=== PATIENT | female | born 1990 | race Caucasian/White ===

== ENCOUNTER 2023-02-05 11:46 | Emergency (ER) | payer MEDICAID, SELFPAY ==
[2023-02-05] VITALS (8 sets, daily range): BP systolic 133–151; BP diastolic 55–88; PULSE 74–93; RESP 16–20; TEMP 36.6–36.9; O2SAT 94–97; BMI 48.6
--- NOTE | 2023-02-05 11:58 | ECG_ITS ---
[facility] Test Date: 2023-02-05 Pat Name: Peggy Sen Department: Room: Gender: Female [employer]ishing [employer] Operator: : 1990 Requested By: Doug Levin Order Number: [id number] Alycia MD: Dario Mckinley M.D. Measurements Intervals [place] Rate: 86 P: 43 IA: 158 QRS: 65 QRSD: 75 T: 50 QT: 358 QTc: 429 Interpretive Statements SINUS RHYTHM No previous ECG available for comparison Electronically Signed On 02-06-2023 6:53:55 CDT by Dario Mckinley M.D. [email or web address]
--- NOTE | 2023-02-05 16:57 | PC.PHAR ---
pt states she takes no rx medications-pt states she took a one time dose of tylenol cold and flu yesterday 02/04/23
--- NOTE | 2023-02-05 17:00 | XRR_ITS ---
PROCEDURE INFORMATION: Exam: XR Right Foot Exam date and time: 02/05/2023 5:04 PM Age: 33 years old Clinical indication: Pain; Foot; Right; Additional info: Pain no trauma TECHNIQUE: Imaging protocol: Radiologic exam of the right foot. Views: 3 or more views. COMPARISON: No relevant prior studies available. FINDINGS: Bones/joints: Negative for acute bone abnormality. Soft tissues: Normal. XR/XR foot RT min 3V* [id number] IMPRESSION: No acute findings.
--- NOTE | 2023-02-05 17:00 | XRR_ITS ---
PROCEDURE INFORMATION: Exam: XR Chest Exam date and time: 02/05/2023 5:04 PM Age: 33 years old Clinical indication: Pain; Chest pressure; Additional info: Right chest pain TECHNIQUE: Imaging protocol: Radiologic exam of the chest. Views: 1 view. COMPARISON: No relevant prior studies available. FINDINGS: Lungs: Unremarkable. No consolidation. Pleural spaces: Unremarkable. No pleural effusion. No pneumothorax. Heart/Mediastinum: Unremarkable. No cardiomegaly. Bones/joints: Unremarkable. XR/XR chest 1V portable [id number] IMPRESSION: No acute findings.
--- NOTE | 2023-02-05 17:03 | ED_ITS ---
Documented by User: Doug Levin DO 02/05/23 17:07 HPI - Chest Pain General: Chief Complaint: Chest Pain Stated Complaint: CP Time Seen by Provider: 02/05/23 16:36 History of Present Illness: Patient presents to the ER with right-sided chest pain that radiates to the right arm that is reproducible with palpation and movement of the right arm. Patient also complains of right-sided foot pain that increases with ambulation and has pins and needle sensation and intermittent numbness along the plantar surface of the heel of the foot. Patient denies any trauma. MD complaint: chest pain (And foot pain) Timing of current episode: episodic Prior episodes: Yes Pain location: right chest Pain radiation: right arm Severity: mild Quality: aching Relieving factors: remaining still Exacerbating factors: palpation and movement Associated symptoms: Reports no associated symptoms; Deny abdominal pain, dyspnea, fever(s), nausea, palpitations or vomiting Treatment prior to arrival: none Review of Systems General: Reports: 10 or more systems reviewed and unremarkable except in HPI and below Const: Denies: fever(s), chills or body aches Eyes: Denies: change in vision or photophobia ENMT: Denies: throat pain or enlarged tonsils Card: Reports: chest pain; Denies: palpitations or irregular heart rhythm Resp: Denies: dyspnea, productive cough or non-productive cough GI: Denies: abdominal pain, nausea, vomiting or diarrhea : Denies: flank pain, difficulty voiding or dysuria Musc: Denies: neck pain, back pain or extremity pain Skin/Breast: Denies: rash, pruritus or erythema Neuro: Denies: headache(s), numbness in extremities or weakness in extremities Physical Exam Const: GENERAL APPEARANCE: cooperative, comfortable, well kempt and well developed NUTRITIONAL APPEARANCE: obese ORIENTATION/CONSCIOUSNESS: Yes awake, Yes oriented to person, Yes oriented to place and Yes oriented to time HENMT: THROAT: posterior oropharynx normal, tonsils normal, uvula midline and abnormal tonsil Eye: COMMON NORMALS: Equal, round and reactive pupils present, EOMs intact bilaterally, conjunctivae normal and no scleral icterus CONJUNCTIVA: Yes conjunctivae normal PUPIL: Yes Equal, round and reactive pupils present Neck/C-Spine: COMMON NORMALS: full ROM, no lymphadenopathy, supple, no meningeal signs, no JVD and Thyroid normal THYROID: Thyroid normal Lymph: LYMPHATIC: no lymphadenopathy noted Chest: COMMONS NORMALS: normal inspection of the chest CHEST: Yes localized rib tenderness with anteroposterior compression Resp: COMMON NORMALS: normal respiratory effort, No retractions, No use of ac cessory muscles and clear to auscultation bilaterally AUSCULTATION: clear to auscultation bilaterally Cardio: COMMON NORMALS: no JVD, regular rate, regular rhythm, S1 normal heart sound present, S2 normal heart sound present, No gallops present (Cardio), No clicks present (Cardio), No murmurs present (Cardio) and No rub (Cardio) RATE: regular rate RHYTHM: regular rhythm HEART SOUNDS: S1 normal heart sound present and S2 normal heart sound present GI: COMMON NORMALS: Normal to inspection, nondistended, normoactive bowel sounds present, Soft to palpation, non-tender, No hepatosplenomegaly present and no masses PALPATION: Yes Soft to palpation and Yes No hepatosplenomegaly present : COMMON NORMALS: Yes no CVA tenderness BLADDER/KIDNEY EXAM: Yes no CVA tenderness Back/Pelvis: COMMON NORMALS: no CVA tenderness Neuro: SENSORIUM/ORIENTATION: Yes oriented to person, Yes oriented to place and Yes oriented to time MENINGEAL SIGNS: Yes no meningeal signs Psych: APPEARANCE: Yes well kempt Course Vital Signs: Vital signs: Vital Signs Temperature 98.2 F 02/05/23 15:30 Pulse Rate 81 02/05/23 17:07 Respiratory Rate 16 02/05/23 17:07 Blood Pressure 151/65 02/05/23 17:15 Pulse Oximetry 95 02/05/23 17:15 Oxygen Delivery Me thod Room Air 02/05/23 17:07 MDM - Chest Pain Differential Diagnosis Unlikely acute massive pulmonary embolism, acute respiratory failure, acute myocardial infarction, cardiac arrest or sudden cardiac Medical Records I reviewed the patient's medical records. Lab Data I reviewed the patient's lab results. 02/05/23 17:04 02/05/23 17:04 Radiology Impressions Chest X-Ray 02/05/23 17:00 IMPRESSION: No acute findings. Foot X-Ray 02/05/23 17:00 IMPRESSION: No acute findings. Laboratory Results WBC 14.8 10^3/uL (4.0-10.0) H 02/05/23 17:04 RBC 4.74 10^6/uL (4.1-5.3) 02/05/23 17:04 Hgb 14.2 g/dL (11.5-15.3) 02/05/23 17:04 Hct 43.4 % (37.0-47.0) 02/05/23 17:04 MCV 91.6 fl (81-99) 02/05/23 17:04 MCH 30.0 pg (28.0-34.0) 02/05/23 17:04 MCHC 32.7 g/dL (30.0-36.0) 02/05/23 17:04 RDW 12.5 % (12.1-15.1) 02/05/23 17:04 Plt Count 330 10^3/cmm (130-400) 02/05/23 17:04 MPV 10.6 fL (7.4-10.4) H 02/05/23 17:04 Neut % (Auto) 69.2 % 02/05/23 17:04 Lymph % (Auto) 20.7 % 02/05/23 17:04 Reynolds % (Auto) 8.0 % 02/05/23 17:04 Eos % (Auto) 1.2 % 02/05/23 17:04 Baso % (Auto) 0.5 % 02/05/23 17:04 Neut # (Auto) 10.22 10^3/uL (1.8-7.7) H 02/05/23 17:04 Lymph # (Auto) 3.1 10^3/uL (0.8-4.8) 02/05/23 17:04 Reynolds # (Auto) 1.2 10^3/uL (0.2-0.9) H 02/05/23 17:04 Eos # (Auto) 0.2 10^3/uL (0.0-0.8) 02/05/23 17:04 Baso # (Auto) 0.1 10^3/uL (0.0-0.1) 02/05/23 17:04 Nucleated RBC % (auto) 0 % 02/05/23 17:04 Nucleated RBCs # 0.0 /100WBC 02/05/23 17:04 Sodium 138 mmol/L (136-145) 02/05/23 17:04 Potassium 3.6 mmol/L (3.5-5.1) 02/05/23 17:04 Chloride 102 mmol/L (98-107) 02/05/23 17:04 Carbon Dioxide 27 mmol/L (22-29) 02/05/23 17:04 Anion Gap 12.6 (5-19) 02/05/23 17:04 BUN 8 mg/dL (6-20) 02/05/23 17:04 Creatinine 0.4 mg/dL (0.5-0.9) L 02/05/23 17:04 GFR Calculation 182.7 mL/min (90-130) H 02/05/23 17:04 Glucose 102 mg/dL (65-115) 02/05/23 17:04 Calculated Osmolality 285 mOsm/kg (285-295) 02/05/23 17:04 Calcium 8.6 mg/dL (8.5-10.5) 02/05/23 17:04 Total Bilirubin 0.3 mg/dL (0.15-1.2) 02/05/23 17:04 AST 10 U/L (0-32) 02/05/23 17:04 ALT 12 U/L (0-33) 02/05/23 17:04 Alkaline Phosphatase 79 U/L (35-105) 02/05/23 17:04 C-Reactive Protein 20.1 mg/L (0.0-4.9) H 02/05/23 17:04 Total Protein 7.4 g/dL (6.6-8.7) 02/05/23 17:04 Albumin 4.0 g/dL (3.5-5.2) 02/05/23 17:04 Globulin 3.4 g/dL (1.3-4.6) 02/05/23 17:04 EKG Data EKG 1: I personally reviewed and interpreted this EKG as follows: EKG interpretation date: 02/05/23 EKG interpretation time: 12:03 Prior EKG tracings: not available for review Interpretation: EKG showed sinus rhythm with a rate of 86 bpm, FL interval of 158, QRS 75, QTc of 429, no ST-T wave changes Discharge Plan Discharge Patient Disposition: Home Clinical Impression: Chest pain Condition: Stable Prescriptions: New Naprosyn 500 mg tablet 500 mg PO BID PRN (Reason: pain) Qty: 20 0RF No Action Tylenol Cold and Flu Severe [id number] mg Tablet 2 tab PO .ONE TIME DOSE Discharge Orders: Discharge ED (Routine); Ordered 02/05/23 Ordered By: Mary Rasmussen Discharge Diet: Advance as tolerated Discharge Activity: Resume usual activity Patient Instructions: Chest Wall Pain (ED) Stand Alone Forms: Work/School Release Coding Level of Care Code ED [place] [employer] for [facility]g Fwd Documented by User: Mary Rasmussen MD 02/05/23 18:24 HPI - Chest Pain General: Chief Complaint: Chest Pain Stated Complaint: CP Time Seen by Provider: 02/05/23 16:36 Course Vital Signs: Vital signs: Vital Signs Temperature 98.2 F 02/05/23 15:30 Pulse Rate 81 02/05/23 17:07 Respiratory Rate 16 02/05/23 17:07 Blood Pressure 151/65 02/05/23 17:15 Pulse Oximetry 95 02/05/23 17:15 Oxygen Delivery Me thod Room Air 02/05/23 17:07 MDM - Chest Pain Medical Decision Making Patient presents here with chest pain that is likely chest wall pain she is point tender over right chest reproduces her pain EKG x-ray is normal blood work here is normal as well we will place her on Naprosyn she is stable for discharge she is to follow-up with PCP and return if worsening. Lab Data 02/05/23 17:04 02/05/23 17:04 Radiology Impressions Chest X-Ray 02/05/23 17:00 IMPRESSION: No acute findings. Foot X-Ray 02/05/23 17:00 IMPRESSION: No acute findings. Laboratory Results WBC 14.8 10^3/uL (4.0-10.0) H 02/05/23 17:04 RBC 4.74 10^6/uL (4.1-5.3) 02/05/23 17:04 Hgb 14.2 g/dL (11.5-15.3) 02/05/23 17:04 Hct 43.4 % (37.0-47.0) 02/05/23 17:04 MCV 91.6 fl (81-99) 02/05/23 17:04 MCH 30.0 pg (28.0-34.0) 02/05/23 17:04 MCHC 32.7 g/dL (30.0-36.0) 02/05/23 17:04 RDW 12.5 % (12.1-15.1) 02/05/23 17:04 Plt Count 330 10^3/cmm (130-400) 02/05/23 17:04 MPV 10.6 fL (7.4-10.4) H 02/05/23 17:04 Neut % (Auto) 69.2 % 02/05/23 17:04 Lymph % (Auto) 20.7 % 02/05/23 17:04 Reynolds % (Auto) 8.0 % 02/05/23 17:04 Eos % (Auto) 1.2 % 02/05/23 17:04 Baso % (Auto) 0.5 % 02/05/23 17:04 Neut # (Auto) 10.22 10^3/uL (1.8-7.7) H 02/05/23 17:04 Lymph # (Auto) 3.1 10^3/uL (0.8-4.8) 02/05/23 17:04 Reynolds # (Auto) 1.2 10^3/uL (0.2-0.9) H 02/05/23 17:04 Eos # (Auto) 0.2 10^3/uL (0.0-0.8) 02/05/23 17:04 Baso # (Auto) 0.1 10^3/uL (0.0-0.1) 02/05/23 17:04 Nucleated RBC % (auto) 0 % 02/05/23 17:04 Nucleated RBCs # 0.0 /100WBC 02/05/23 17:04 Sodium 138 mmol/L (136-145) 02/05/23 17:04 Potassium 3.6 mmol/L (3.5-5.1) 02/05/23 17:04 Chloride 102 mmol/L (98-107) 02/05/23 17:04 Carbon Dioxide 27 mmol/L (22-29) 02/05/23 17:04 Anion Gap 12.6 (5-19) 02/05/23 17:04 BUN 8 mg/dL (6-20) 02/05/23 17:04 Creatinine 0.4 mg/dL (0.5-0.9) L 02/05/23 17:04 GFR Calculation 182.7 mL/min (90-130) H 02/05/23 17:04 Glucose 102 mg/dL (65-115) 02/05/23 17:04 Calculated Osmolality 285 mOsm/kg (285-295) 02/05/23 17:04 Calcium 8.6 mg/dL (8.5-10.5) 02/05/23 17:04 Total Bilirubin 0.3 mg/dL (0.15-1.2) 02/05/23 17:04 AST 10 U/L (0-32) 02/05/23 17:04 ALT 12 U/L (0-33) 02/05/23 17:04 Alkaline Phosphatase 79 U/L (35-105) 02/05/23 17:04 C-Reactive Protein 20.1 mg/L (0.0-4.9) H 02/05/23 17:04 Total Protein 7.4 g/dL (6.6-8.7) 02/05/23 17:04 Albumin 4.0 g/dL (3.5-5.2) 02/05/23 17:04 Globulin 3.4 g/dL (1.3-4.6) 02/05/23 17:04 Discharge Plan Discharge Patient Disposition: Home Clinical Impression: Chest pain Condition: Stable Prescriptions: New Naprosyn 500 mg tablet 500 mg PO BID PRN (Reason: pain) Qty: 20 0RF No Action Tylenol Cold and Flu Severe 3-19-870-200 mg Tablet 2 tab PO .ONE TIME DOSE Discharge Orders: Discharge ED (Routine); Ordered 02/05/23 Ordered By: Mary Rasmussen Discharge Diet: Advance as tolerated Discharge Activity: Resume usual activity Patient Instructions: Chest Wall Pain (ED) Stand Alone Forms: Work/School Release Coding Level of Care Code ED [employer] for Roslyn Lomeli
[2023-02-05 17:30] LABS: Basophils # 0.1 10^3/uL (0.0-0.1); Basophils % 0.5 %; Eosinophils # 0.2 10^3/uL (0.0-0.8); Eosinophils % 1.2 %; Hematocrit 43.4 % (37.0-47.0); Hemoglobin 14.2 g/dL (11.5-15.3); Lymphocytes # 3.1 10^3/uL (0.8-4.8); Lymphocytes % 20.7 %; Mean Corpuscular HGB Conc 32.7 g/dL (30.0-36.0); Mean Corpuscular Volume 91.6 fl (81-99); Mean Platelet Volume 10.6 fL (7.4-10.4); Monocytes # 1.2 10^3/uL (0.2-0.9); Neutrophils # 10.22 10^3/uL (1.8-7.7); Neutrophils % 69.2 %; Nucleated Red Blood Cells % 0 %; Platelet Count 330 10^3/cmm (130-400); Red Blood Count 4.74 10^6/uL (4.1-5.3); Red Cell Distribution Width 12.5 % (12.1-15.1); White Blood Count 14.8 10^3/uL (4.0-10.0)
[2023-02-05 17:48] LABS: Alanine Aminotransferase 12 U/L (0-33); Alkaline Phosphatase 79 U/L (35-105); Anion Gap 12.6 (5-19); Aspartate Amino Transferase 10 U/L (0-32); Blood Urea Nitrogen 8 mg/dL (6-20); C Reactive Protein 20.1 mg/L (0.0-4.9); Calcium 8.6 mg/dL (8.5-10.5); Carbon Dioxide 27 mmol/L (22-29); Chloride 102 mmol/L (98-107); Globulin 3.4 g/dL (1.3-4.6); Glomerular Filtration Rate 182.7 mL/min (90-130); Glucose 102 mg/dL (65-115); Osmolality Calculated 285 mOsm/kg (285-295); Potassium 3.6 mmol/L (3.5-5.1); Sodium 138 mmol/L (136-145); Total Bilirubin 0.3 mg/dL (0.15-1.2); Total Protein 7.4 g/dL (6.6-8.7)
--- NOTE | 2023-02-11 15:54 | DCPLANNER ---
Addendum entered by Suha White 02/19/23 10:11: Patient had a follow up appointment scheduled with Dr. Wakefield to establish care patient did not attend appointment. Original Note: nursing services manager called patient due to no primary care physician - Patient stated that she would like help in getting established with a provider. nursing services manager called [facility], gave clinic patients information. A follow up appointment was scheduled for February at 1:[address] Rao at [facility].
== END 2023-02-05 18:31 | disposition home or self-care (01) ==
PROVIDERS: Emergency Medicine; Emergency Provider Emergency Medicine
DX: R07.9 Chest pain, unspecified (principal)
CPT/HCPCS: 71045; 73630; 80053; 85025; 86140; 93005; 99285